=== PATIENT | female | born 1980 | race Caucasian/White ===

== ENCOUNTER 2019-07-20 14:34 | Inpatient (IN) | payer MEDICARE, MEDICAID ==
[~2019-07-20] VITALS: Ht 170.2 cm; Wt 132.1 kg
[2019-07-20 16:13] LABS: HEMATOCRIT 38.9 % (36.0-47.0); HEMOGLOBIN 13.1 g/dl (12.0-15.5); MEAN CORPUSCULAR HEMOGLOBIN 29.5 pg (27.0-33.0); MEAN CORPUSCULAR HGB CONC 33.7 g/dl (32.0-36.5); MEAN CORPUSCULAR VOLUME 87.6 fl (80.0-96.0); PLATELET COUNT, AUTOMATED 418 10^3/uL (150-450); RED BLOOD COUNT 4.44 10^6/uL (4.00-5.40); WHITE BLOOD COUNT 13.1 10^3/uL (4.0-10.0)
[2019-07-20 16:33] LABS: HCG, SERUM QUALITATIVE NEGATIVE (NEGATIVE)
[2019-07-20 16:34] LABS: AMPHETAMINES LEVEL URINE POSITIVE (NEGATIVE); BARBITURATES URINE NEGATIVE (NEGATIVE); BENZODIAZEPINES URINE NEGATIVE (NEGATIVE); CANNABINOIDS URINE NEGATIVE (NEGATIVE); COCAINE METABOLITE URINE NEGATIVE (NEGATIVE); METHADONE URINE POSITIVE (NEGATIVE); OPIATES URINE NEGATIVE (NEGATIVE); PHENCYCLIDINE URINE NEGATIVE (NEGATIVE)
[2019-07-20] MEDS ORDERED: LAMO25TA4 PO (16:44)
[2019-07-20] MEDS ORDERED: LISI10TA15 PO (16:44)
[2019-07-20] MEDS ORDERED: CITA20TA6 PO (16:44)
[2019-07-20] MEDS ORDERED: GABA600T4 PO (16:44)
[2019-07-20] MEDS ORDERED: LAMO100T80 PO (16:44)
[2019-07-20] MEDS ORDERED: LAMO100T3 PO (16:44)
[2019-07-20] MEDS ORDERED: METF500T13 PO ×2 (16:44)
[2019-07-20] MEDS ORDERED: BUPR150T3 PO (16:44)
[2019-07-20] MEDS ORDERED: METH10CO PO (16:44)
[2019-07-20 16:46] LABS: ACETAMINOPHEN LEVEL < 2.0 UG/ML (10.0-30.0); ALBUMIN 3.3 GM/DL (3.2-5.2); ALT/SGPT 77 U/L (12-78); BILIRUBIN,DIRECT 0.1 MG/DL (0.0-0.2); BILIRUBIN,TOTAL 0.2 MG/DL (0.2-1.0); BLOOD UREA NITROGEN 17 MG/DL (7-18); CALCIUM LEVEL 8.3 MG/DL (8.5-10.1); CARBON DIOXIDE LEVEL 26 MEQ/L (21-32); CHLORIDE LEVEL 105 MEQ/L (98-107); CREATININE FOR GFR 0.76 MG/DL (0.55-1.30); ETHYL ALCOHOL (ETHANOL) < 0.003 % (0.000-0.010); GLOMERULAR FILTRATION RATE > 60.0 (>60); GLUCOSE, FASTING 129 MG/DL (70-100); POTASSIUM SERUM 3.6 MEQ/L (3.5-5.1); SALICYLATE LEVEL 2.5 MG/DL (5.0-30.0); SODIUM LEVEL 139 MEQ/L (136-145); TOTAL PROTEIN 7.3 GM/DL (6.4-8.2)
[2019-07-20] MEDS ORDERED: MOM 30ML SUSPENSION UDC PO PRN (20:30)
[2019-07-20] MEDS ORDERED: lamoTRIgine 25 MG TAB PO ONE (20:30)
[2019-07-20] MEDS ORDERED: metFORMIN (GLUCOPHAGE) 1000 MG TABLET PO ONE (20:30)
[2019-07-20] MEDS ORDERED: MAALOX 30 ML SUSP *UDC PO PRN (20:30)
[2019-07-20] MEDS ORDERED: GABAPENTIN 300 MG CAP PO ONE (20:30)
[2019-07-20] MEDS ORDERED: traZODone 50 MG TAB PO PRN (20:30)
[2019-07-20] MEDS: GABAPENTIN 300 MG CAP PO SCH (20:58)
[2019-07-20] MEDS: metFORMIN (GLUCOPHAGE) 500 MG TAB PO SCH (20:58)
[2019-07-20] MEDS: lamoTRIgine 25 MG TAB PO SCH (20:58)
[2019-07-20 22:15] VITALS: BP 132/74
[2019-07-21] MEDS: ACETAMINOPHEN TAB 650MG DOSE (2X325MG) PO PRN ×2 (05:48→18:34)
[2019-07-21 05:53] VITALS: BP 151/84
[2019-07-21] MEDS: NICOTINE 21MG/24HR 1 EA TRANSDERMAL TD SCH (08:31)
[2019-07-21] MEDS: buPROPion **XL** TABLET 150MG (WELLBUTRIN XL) PO SCH (08:34)
[2019-07-21] MEDS: metFORMIN (GLUCOPHAGE) 500 MG TAB PO SCH ×2 (08:34→22:26)
[2019-07-21] MEDS: lamoTRIgine 100MG TAB PO SCH (08:34)
[2019-07-21] MEDS: CitaloPRAM (CeleXA) 20 MG TAB PO SCH (08:34)
[2019-07-21] MEDS: GABAPENTIN 300 MG CAP PO SCH ×3 (08:34→22:27)
[2019-07-21] MEDS: lisinopriL 10 MG TAB PO SCH (08:34)
[2019-07-21] MEDS: hydroCHLOROthiazide 12.5 MG CAPSULE PO SCH (08:34)
[2019-07-21] MEDS: METHADONE 10 MG TAB (S0109) PO SCH (09:17)
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
--- NOTE | 2019-07-21 14:00 | HPEPDOC ---
[facility] Medical History & Physical Date of Admission Jul 21, 2019 Date of Service: Jul 21, 2019 Other Provider PCP - Cheri Edwards History and Physical CHIEF COMPLAINT: Medical H&P for inpatient mental health HISTORY OF PRESENT ILLNESS: 38 yo female admitted to [facility] for suicidal ideation. Patient has no medical complaints at this time. PAST MEDICAL HISTORY: #glucose intolerance #hypertension #peripheral neuropathy #IVDA ALLERGIES: Please see below. REVIEW OF SYSTEMS: Negative HOME MEDICATIONS: Please see below. PHYSICAL EXAMINATION: VITAL SIGNS: See below General: NAD, sitting in chair comfortably HEENT: NC/AT, EOMI Lungs: CTA B/L Heart: +S1S2, RRR Abd: obese, soft, NT, +BS Ext: no edema LABORATORY DATA: See below. MICROBIOLOGY: Please see below. ASSESSMENT: 38 yo female admitted to [facility] for suicidal ideation. #glucose intolerance - carb consistent diet - metformin #HTN - low salt diet - ACEI #neuropathy - continue gabapentin as per home Rx if no CI with psych #nicotine abuse - nicotine replacement therapy in place Vital Signs Vital Signs Date Time Temp Pulse Resp B/P (MAP) Pulse Ox O2 Delivery O2 Flow Rate FiO2 07/21/19 08:34 132/60 07/21/19 07:55 Room Air 07/21/19 05:53 99.5 100 20 07/20/19 22:15 94 Laboratory Data Labs 24H Laboratory Tests 2 07/20/19 15:52: Nucleated Red Blood Cells % (auto) 0.0, Anion Gap 8, Glomerular Filtration Rate > 60.0, Calcium Level 8.3L, Total Bilirubin 0.2, Direct Bilirubin 0.1, Aspartate Amino Transf (AST/SGOT) 87H, Alanine Aminotransferase (ALT/SGPT) 77, Alkaline Phosphatase 149H, Total Protein 7.3, Albumin 3.3, Albumin/Globulin Ratio 0.83L, Thyroid Stimulating Hormone (TSH) 1.020, Human Chorionic Gonadotropin, Qual NEGATIVE, Salicylates Level 2.5L, Urine Opiates Screen NEGATIVE, Urine Methadone Screen POSITIVEH, Acetaminophen Level < 2.0L, Urine Barbiturates Screen NEGATIVE, Urine Phencyclidine Screen NEGATIVE, Urine Amphetamines Screen POSITIVEH, Urine Benzodiazepines Screen NEGATIVE, Urine Cocaine Metabolite Screen NEGATIVE, Urine Cannabinoids Screen NEGATIVE, Ethyl Alcohol Level < 0.003 CBC/BMP Laboratory Tests 07/20/19 15:52 Home Medications Scheduled Bupropion Hcl (Bupropion Xl) 150 Mg Tab.er.24h, 150 MG PO DAILY Citalopram Hydrobromide (Citalopram HBr) 20 Mg Tablet, 20 MG PO DAILY Gabapentin (Gabapentin) 600 Mg Tablet, 600 MG PO TID Lamotrigine (Lamotrigine) 100 Mg Tablet, 100 MG PO QAM Lamotrigine (Lamotrigine) 25 Mg Tablet, 25 MG PO QHS 75MG TOTAL QHS Lamotrigine (Lamotrigine) 100 Mg Tablet, 50 MG PO QHS 75MG TOTAL QHS Lisinopril/Hydrochlorothiazide (Lisinopril-Hctz 10-12.5 mg Tab) 1 Each Tablet, 1 TAB PO DAILY Metformin HCl (Metformin HCl) 500 Mg Tablet, 500 MG PO QAM Metformin HCl (Metformin HCl) 500 Mg Tablet, 1,000 MG PO QHS Methadone HCl (Methadone HCl) 10 Mg/1 Ml Oral.conc, 180 MG PO DAILY Allergies Coded Allergies: ketorolac (Verified Allergy, Severe, throat closesd, 07/20/19) metoclopramide (Verified Allergy, Intermediate, 07/20/19) bacitracin (Verified Allergy, Unknown, 07/20/19) neomycin (Verified Allergy, Unknown, 07/20/19) polymyxin B (Verified Allergy, Unknown, 07/20/19) morphine (Verified Adverse Reaction, Intermediate, hr elevated, 07/20/19) quetiapine (Verified Adverse Reaction, Intermediate, heart races, 07/20/19) A-FIB/CHADSVASC A-FIB History Current/History of A-Fib/PAF?: No RIO AWAN MD Jul 21, 2019 14:00
[2019-07-21 16:00] VITALS: BP 108/65
[2019-07-21] MEDS: lamoTRIgine 25 MG TAB PO SCH (22:26)
[2019-07-22] MEDS: ACETAMINOPHEN TAB 650MG DOSE (2X325MG) PO PRN (04:26)
[2019-07-22 06:15] VITALS: BP 130/81
[2019-07-22] MEDS: buPROPion **XL** TABLET 150MG (WELLBUTRIN XL) PO SCH (08:27)
[2019-07-22] MEDS: lisinopriL 10 MG TAB PO SCH (08:27)
[2019-07-22] MEDS: NICOTINE 21MG/24HR 1 EA TRANSDERMAL TD SCH (08:27)
[2019-07-22] MEDS: metFORMIN (GLUCOPHAGE) 500 MG TAB PO SCH ×2 (08:28→21:09)
[2019-07-22] MEDS: hydroCHLOROthiazide 12.5 MG CAPSULE PO SCH (08:28)
[2019-07-22] MEDS: METHADONE 10 MG TAB (S0109) PO SCH (08:28)
[2019-07-22] MEDS: CitaloPRAM (CeleXA) 20 MG TAB PO SCH (08:30)
[2019-07-22] MEDS: lamoTRIgine 100MG TAB PO SCH (08:30)
[2019-07-22] MEDS: GABAPENTIN 300 MG CAP PO SCH ×3 (08:31→21:10)
--- NOTE | 2019-07-22 08:53 | MHIPNPDOC ---
[facility] Progress Note Progress Note DATE OF SERVICE: 07/22/19 HISTORY: Pt is a 38y/o CF admitted after she was brought in to be parole after seen at [facility] due to having urges to kill her self by using heroin do to multip le psychosocial stressors and loss of her father recently. She is currently in the methadone. VITAL SIGNS: See below. NEW TEST RESULTS: See below. CURRENT MEDICATIONS: See below. MENTAL STATUS EXAMINATION: Patient is a 38 year old female, who is clean and dressed hospital clothing Speech: Is regular rate rhythm, volume. Language skills are good Thought processes including: linear, logical Thought content: depressed, denies SI/HI, positive thoughts about not being brianna Abstract reasoning, and computation: intact. Description of associations: appropriate Description of abnormal or psychotic thoughts: denies Judgment: fair Insight: fair Orientation: x3 Recent and remote memory: intact Attention span and concentration: good Language: appropriate Fund of knowledge: average Mood: "ok" Affect: euthymic, full, anxious DIAGNOSES: Depression Unspecified R/O adjustment d/o depression opiate use d/o in remission ASSESSMENT:Pt seen and states that her mood is "ok". States she's continuing to struggle with why she has been feeling thoughts of not being alive and wants to strength her thoughts in wanting to be alive. Reviewed with her how to use CBT and states she'll use it. States she slept well last night. Feels she is tolerating her medications and they're beneficial. She is attending groups and finding them helpful. She denies SI/HI, hallucinations, delusions. Pt feels safe here. MANAGEMENT PLAN: continue plan. TIME SPENT: 30 minutes. Vital Signs Vital Signs Date Time Temp Pulse Resp B/P (MAP) Pulse Ox O2 Delivery O2 Flow Rate FiO2 07/22/19 06:15 98.6 79 18 130/81 (97) 07/21/19 07:55 Room Air 07/20/19 22:15 94 Current Medications Current Medications Medications (Trade) Dose Ordered Sig/Bernice Route PRN Reason Start Time Stop Time Status Last Admin Dose Admin Acetaminophen (Tylenol Tab) 650 mg Q6HP PRN PO HEADACHE or DISCOMFORT 07/20/19 20:30 07/22/19 04:26 Al Hydrox/Mg Hydrox/Simethicone (Mylanta) 30 ml Q4HP PRN PO HEARTBURN/INDIGESTION 07/20/19 20:30 Bupropion HCl (Wellbutrin Xl) 150 mg DAILY PO 07/21/19 09:00 07/21/19 08:34 Citalopram Hydrobromide (CeleXA) 20 mg DAILY PO 07/21/19 09:00 07/21/19 08:34 Gabapentin (Neurontin) 600 mg TID PO 07/20/19 21:00 07/21/19 22:27 Home Med (Med Rec Complete!) ASDIRECTED XX 07/20/19 16:45 07/20/19 16:47 DC Hydrochlorothiazide (Hydrodiuril) 12.5 mg DAILY PO 07/21/19 09:00 07/21/19 08:34 Lamotrigine (LaMICtal) 75 mg QHS PO 07/20/19 21:00 07/21/19 22:26 Lamotrigine (LaMICtal) 100 mg QAM PO 07/21/19 09:00 07/21/19 08:34 Lisinopril (Prinivil) 10 mg DAILY PO 07/21/19 09:00 07/21/19 08:34 Magnesium Hydroxide (Milk Of Magnesia) 30 ml DAILYPRN PRN PO CONSTIPATION 07/20/19 20:30 Metformin HCl (Glucophage) 500 mg QAM PO 07/21/19 09:00 07/21/19 08:34 Metformin HCl (Glucophage) 1,000 mg QHS PO 07/20/19 21:00 07/21/19 22:26 Methadone HCl (Dolophine) 180 mg DAILY PO 07/21/19 09:00 07/21/19 09:17 Nicotine (Nicoderm Cq 21mg) 1 patch DAILY TD 07/21/19 09:00 07/21/19 08:31 Trazodone HCl (Desyrel) 50 mg QHSP PRN PO INSOMNIA 07/20/19 20:30 07/21/19 22:27 Allergies Coded Allergies: ketorolac (Verified Allergy, Severe, throat closesd, 07/20/19) metoclopramide (Verified Allergy, Intermediate, 07/20/19) bacitracin (Verified Allergy, Unknown, 07/20/19) neomycin (Verified Allergy, Unknown, 07/20/19) polymyxin B (Verified Allergy, Unknown, 07/20/19) morphine (Verified Adverse Reaction, Intermediate, hr elevated, 07/20/19) quetiapine (Verified Adverse Reaction, Intermediate, heart races, 07/20/19) BELA LINDER DO Jul 22, 2019 8:53 am
[2019-07-22 16:00] VITALS: BP 137/74
[2019-07-22] MEDS: lamoTRIgine 25 MG TAB PO SCH (21:09)
[2019-07-23 06:29] VITALS: BP 122/67
[2019-07-23] MEDS: buPROPion **XL** TABLET 150MG (WELLBUTRIN XL) PO SCH (08:52)
[2019-07-23] MEDS: METHADONE 10 MG TAB (S0109) PO SCH (08:52)
[2019-07-23] MEDS: GABAPENTIN 300 MG CAP PO SCH ×3 (08:52→20:35)
[2019-07-23] MEDS: CitaloPRAM (CeleXA) 20 MG TAB PO SCH (08:52)
[2019-07-23] MEDS: metFORMIN (GLUCOPHAGE) 500 MG TAB PO SCH ×2 (08:53→20:36)
[2019-07-23] MEDS: hydroCHLOROthiazide 12.5 MG CAPSULE PO SCH (08:54)
[2019-07-23] MEDS: lamoTRIgine 100MG TAB PO SCH (08:54)
[2019-07-23] MEDS: lisinopriL 10 MG TAB PO SCH (08:54)
[2019-07-23] MEDS: NICOTINE 21MG/24HR 1 EA TRANSDERMAL TD SCH (08:55)
--- NOTE | 2019-07-23 09:42 | MHIPNPDOC ---
[facility] Progress Note Progress Note DATE OF SERVICE: 07/23/19 HISTORY: Per Dr. Eden: "Patient, a 38-year-old woman with an extensive history of drug abuse, presents after reporting that for the last week she has become increasingly depressed, lost interest and had difficulty concentrating. She has a history of significant problems with methamphetamine and is currently at [facility] for methadone. She presented with vague suicidal ideation and was admitted out of an abundance of caution. When the patient was met with, she described that she had symptoms of depression, low mood in the setting of some stressors, stating that she had "been doing too much." Reportedly she had been brought in from probation and parole warning that she had suicidal thoughts." Pt is a 38y/o CF admitted after she was brought in to be parole after seen at [facility] due to having urges to kill her self by using heroin do to multiple psychosocial stressors and loss of her father recently. She is currently in the methadone. VITAL SIGNS: See below. NEW TEST RESULTS: See below. CURRENT MEDICATIONS: See below. MENTAL STATUS EXAMINATION: Patient is a 38 year old female, who is clean and dressed hospital clothing Speech: Is regular rate rhythm, volume. Language skills are good Thought processes including: linear, logical Thought content: depressed, denies SI/HI, improved thoughts about not being alive Abstract reasoning, and computation: intact. Description of associations: appropriate Description of abnormal or psychotic thoughts: denies Judgment: fair Insight: fair Orientation: x3 Recent and remote memory: intact Attention span and concentration: good Language: appropriate Fund of knowledge: average Mood: "off" Affect: euthymic, full, anxious DIAGNOSES: Depression Unspecified R/O adjustment d/o depression opiate use d/o in remission ASSESSMENT:Pt seen and states that her mood is "off" today. As she doesn't want to harm herself anymore but still feels depressed. Advised pt that her medication and treatment appear to be beneficial due to improvement in SI and that over weekend her mood should improve for discharge Friday which she found reassuring. States she slept well last night. Feels she is tolerating her medications and they're beneficial. She is attending groups and finding them helpful. She denies SI/HI, hallucinations, delusions. Pt feels safe here. MANAGEMENT PLAN: continue plan. TIME SPENT: 30 minutes. Vital Signs Vital Signs Date Time Temp Pulse Resp B/P (MAP) Pulse Ox O2 Delivery O2 Flow Rate FiO2 07/23/19 08:54 130/84 07/23/19 06:29 98.6 84 14 07/22/19 08:59 Room Air 07/20/19 22:15 94 Current Medications Current Medications Medications (Trade) Dose Ordered Sig/Bernice Route PRN Reason Start Time Stop Time Status Last Admin Dose Admin Acetaminophen (Tylenol Tab) 650 mg Q6HP PRN PO HEADACHE or DISCOMFORT 07/20/19 20:30 07/22/19 04:26 Al Hydrox/Mg Hydrox/Simethicone (Mylanta) 30 ml Q4HP PRN PO HEARTBURN/INDIGESTION 07/20/19 20:30 Bupropion HCl (Wellbutrin Xl) 150 mg DAILY PO 07/21/19 09:00 07/23/19 08:52 Citalopram Hydrobromide (CeleXA) 20 mg DAILY PO 07/21/19 09:00 07/23/19 08:52 Gabapentin (Neurontin) 600 mg TID PO 07/20/19 21:00 07/23/19 08:52 Home Med (Med Rec Complete!) ASDIRECTED XX 07/20/19 16:45 07/20/19 16:47 DC Hydrochlorothiazide (Hydrodiuril) 12.5 mg DAILY PO 07/21/19 09:00 07/23/19 08:54 Lamotrigine (LaMICtal) 75 mg QHS PO 07/20/19 21:00 07/22/19 21:09 Lamotrigine (LaMICtal) 100 mg QAM PO 07/21/19 09:00 07/23/19 08:54 Lisinopril (Prinivil) 10 mg DAILY PO 07/21/19 09:00 07/23/19 08:54 Magnesium Hydroxide (Milk Of Magnesia) 30 ml DAILYPRN PRN PO CONSTIPATION 07/20/19 20:30 Metformin HCl (Glucophage) 500 mg QAM PO 07/21/19 09:00 07/23/19 08:53 Metformin HCl (Glucophage) 1,000 mg QHS PO 07/20/19 21:00 07/22/19 21:09 Methadone HCl (Dolophine) 180 mg DAILY PO 07/21/19 09:00 07/23/19 08:52 Nicotine (Nicoderm Cq 21mg) 1 patch DAILY TD 07/21/19 09:00 07/23/19 08:55 Trazodone HCl (Desyrel) 50 mg QHSP PRN PO INSOMNIA 07/20/19 20:30 07/21/19 22:27 Allergies Coded Allergies: ketorolac (Verified Allergy, Severe, throat closesd, 07/20/19) metoclopramide (Verified Allergy, Intermediate, 07/20/19) bacitracin (Verified Allergy, Unknown, 07/20/19) neomycin (Verified Allergy, Unknown, 07/20/19) polymyxin B (Verified Allergy, Unknown, 07/20/19) morphine (Verified Adverse Reaction, Intermediate, hr elevated, 07/20/19) quetiapine (Verified Adverse Reaction, Intermediate, heart races, 07/20/19) BELA LINDER DO Jul 23, 2019 9:42 am
[2019-07-23 16:39] VITALS: BP 118/79
[2019-07-23] MEDS: lamoTRIgine 25 MG TAB PO SCH (20:35)
[2019-07-24 06:13] VITALS: BP 123/59
[2019-07-24] MEDS: METHADONE 10 MG TAB (S0109) PO SCH (08:53)
[2019-07-24] MEDS: hydroCHLOROthiazide 12.5 MG CAPSULE PO SCH (08:53)
[2019-07-24] MEDS: GABAPENTIN 300 MG CAP PO SCH ×3 (08:53→20:17)
[2019-07-24] MEDS: CitaloPRAM (CeleXA) 20 MG TAB PO SCH (08:54)
[2019-07-24] MEDS: buPROPion **XL** TABLET 150MG (WELLBUTRIN XL) PO SCH (08:54)
[2019-07-24] MEDS: lamoTRIgine 100MG TAB PO SCH (08:54)
[2019-07-24] MEDS: lisinopriL 10 MG TAB PO SCH (08:54)
[2019-07-24] MEDS: metFORMIN (GLUCOPHAGE) 500 MG TAB PO SCH ×2 (08:54→20:17)
[2019-07-24] MEDS: NICOTINE 21MG/24HR 1 EA TRANSDERMAL TD SCH (08:55)
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
[2019-07-24 16:08] VITALS: BP 130/80
[2019-07-24] MEDS: lamoTRIgine 25 MG TAB PO SCH (20:17)
[2019-07-25 06:28] VITALS: BP 110/55
[2019-07-25] MEDS: GABAPENTIN 300 MG CAP PO SCH ×3 (08:25→20:20)
[2019-07-25] MEDS: lamoTRIgine 100MG TAB PO SCH (08:25)
[2019-07-25] MEDS: lisinopriL 10 MG TAB PO SCH (08:26)
[2019-07-25] MEDS: buPROPion **XL** TABLET 150MG (WELLBUTRIN XL) PO SCH (08:26)
[2019-07-25] MEDS: CitaloPRAM (CeleXA) 20 MG TAB PO SCH (08:26)
[2019-07-25] MEDS: METHADONE 10 MG TAB (S0109) PO SCH (08:27)
[2019-07-25] MEDS: NICOTINE 21MG/24HR 1 EA TRANSDERMAL TD SCH (08:31)
[2019-07-25] MEDS: metFORMIN (GLUCOPHAGE) 500 MG TAB PO SCH ×2 (09:33→20:20)
[2019-07-25] MEDS: hydroCHLOROthiazide 12.5 MG CAPSULE PO SCH (09:33)
[2019-07-25 16:00] VITALS: BP 127/57
--- NOTE | 2019-07-25 17:30 | MHIPNPDOC ---
[facility] Progress Note Progress Note DATE OF SERVICE: 07/25/19 HISTORY: Per Dr. Eden: "Patient, a 38-year-old woman with an extensive history of drug abuse, presents after reporting that for the last week she has become increasingly depressed, lost interest and had difficulty concentrating. She has a history of significant problems with methamphetamine and is currently at [facility] for methadone. She presented with vague suicidal ideation and was admitted out of an abundance of caution. When the patient was met with, she described that she had symptoms of depression, low mood in the setting of some stressors, stating that she had "been doing too much." Reportedly she had been brought in from probation and parole warning that she had suicidal thoughts." Pt is a 38y/o CF admitted after she was brought in to be parole after seen at [facility] due to having urges to kill her self by using heroin do to multiple psychosocial stressors and loss of her father recently. She is currently in the methadone. VITAL SIGNS: See below. NEW TEST RESULTS: See below. CURRENT MEDICATIONS: See below. MENTAL STATUS EXAMINATION: Patient is a 38 year old female, who is clean and dressed hospital clothing, pleasant and cooperative Speech: Is regular rate rhythm, volume. Language skills are good Thought processes including: linear, logical Thought content: depressed, denies SI/HI but she continues to endorse guilty thoughts/feelings Abstract reasoning, and computation: intact. Description of associations: appropriate Description of abnormal or psychotic thoughts: denies Judgment: fair Insight: fair Orientation: x3 Recent and remote memory: intact Attention span and concentration: good Language: appropriate Fund of knowledge: average Mood: "I'm not ready yet" Affect: congruent with mood, sad DIAGNOSES: Depression Unspecified R/O adjustment d/o depression opiate use d/o in remission ASSESSMENT: patient is still depressed although she is not suicidal or homicidal. She thinks she needs to stay longer because she still feels vulnerable to deal with the outside world. She's been pleasant and cooperative MANAGEMENT PLAN: continue with current treatment plan TIME SPENT: 15 minutes. Vital Signs Vital Signs Date Time Temp Pulse Resp B/P (MAP) Pulse Ox O2 Delivery O2 Flow Rate FiO2 07/25/19 08:26 110/55 07/25/19 06:28 97.6 80 16 07/22/19 08:59 Room Air 07/20/19 22:15 94 Laboratory Data 24H Labs Laboratory Tests 2 07/24/19 16:55: Bedside Glucose (Misc Panel) 124H 07/25/19 06:47: Bedside Glucose (Misc Panel) 108H Current Medications Current Medications Medications (Trade) Dose Ordered Sig/Bernice Route PRN Reason Start Time Stop Time Status Last Admin Dose Admin Acetaminophen (Tylenol Tab) 650 mg Q6HP PRN PO HEADACHE or DISCOMFORT 07/20/19 20:30 07/22/19 04:26 Al Hydrox/Mg Hydrox/Simethicone (Mylanta) 30 ml Q4HP PRN PO HEARTBURN/INDIGESTION 07/20/19 20:30 Bupropion HCl (Wellbutrin Xl) 150 mg DAILY PO 07/21/19 09:00 07/25/19 08:26 Citalopram Hydrobromide (CeleXA) 20 mg DAILY PO 07/21/19 09:00 07/25/19 08:26 Gabapentin (Neurontin) 600 mg TID PO 07/20/19 21:00 07/25/19 16:05 Home Med (Med Rec Complete!) ASDIRECTED XX 07/20/19 16:45 07/20/19 16:47 DC Hydrochlorothiazide (Hydrodiuril) 12.5 mg DAILY PO 07/21/19 09:00 07/25/19 09:33 Lamotrigine (LaMICtal) 75 mg QHS PO 07/20/19 21:00 07/24/19 20:17 Lamotrigine (LaMICtal) 100 mg QAM PO 07/21/19 09:00 07/25/19 08:25 Lisinopril (Prinivil) 10 mg DAILY PO 07/21/19 09:00 07/25/19 08:26 Magnesium Hydroxide (Milk Of Magnesia) 30 ml DAILYPRN PRN PO CONSTIPATION 07/20/19 20:30 Metformin HCl (Glucophage) 500 mg QAM PO 07/21/19 09:00 07/25/19 09:33 Metformin HCl (Glucophage) 1,000 mg QHS PO 07/20/19 21:00 07/24/19 20:17 Methadone HCl (Dolophine) 180 mg DAILY PO 07/21/19 09:00 07/25/19 08:27 Nicotine (Nicoderm Cq 21mg) 1 patch DAILY TD 07/21/19 09:00 07/25/19 08:31 Trazodone HCl (Desyrel) 50 mg QHSP PRN PO INSOMNIA 07/20/19 20:30 07/21/19 22:27 Allergies Coded Allergies: ketorolac (Verified Allergy, Severe, throat closesd, 07/20/19) metoclopramide (Verified Allergy, Intermediate, 07/20/19) bacitracin (Verified Allergy, Unknown, 07/20/19) neomycin (Verified Allergy, Unknown, 07/20/19) polymyxin B (Verified Allergy, Unknown, 07/20/19) morphine (Verified Adverse Reaction, Intermediate, hr elevated, 07/20/19) quetiapine (Verified Adverse Reaction, Intermediate, heart races, 07/20/19) BOB GALINDO MD Jul 25, 2019 16:18
[2019-07-25] MEDS: lamoTRIgine 25 MG TAB PO SCH (20:20)
[2019-07-26 06:41] VITALS: BP 122/80
[2019-07-26] MEDS: NICOTINE 21MG/24HR 1 EA TRANSDERMAL TD SCH (08:51)
[2019-07-26 08:55] VITALS: BP 123/70
[2019-07-26] MEDS: CitaloPRAM (CeleXA) 20 MG TAB PO SCH (08:55)
[2019-07-26] MEDS: metFORMIN (GLUCOPHAGE) 500 MG TAB PO SCH (08:55)
[2019-07-26] MEDS: hydroCHLOROthiazide 12.5 MG CAPSULE PO SCH (08:55)
[2019-07-26] MEDS: lamoTRIgine 100MG TAB PO SCH (08:55)
[2019-07-26] MEDS: lisinopriL 10 MG TAB PO SCH (08:55)
[2019-07-26] MEDS: GABAPENTIN 300 MG CAP PO SCH (08:55)
[2019-07-26] MEDS: buPROPion **XL** TABLET 150MG (WELLBUTRIN XL) PO SCH (08:55)
[2019-07-26] MEDS: METHADONE 10 MG TAB (S0109) PO SCH (08:56)
--- NOTE | 2019-07-26 09:58 | MHDSPDOC ---
[facility] Discharge Summary Discharge Summary DATE OF ADMISSION: Jul 20, 2019 at 20:26 DATE OF DISCHARGE: 07/26/19 Amy Downs Discharge Amy Downs Select Gender MRN: N/A Date of : MM/DD/YYYY Date of Service: 07/26/2019 Diagnoses Unspecified depressive disorder. Concern for fabrication versus substance. Methamphetamine use disorder, [id number]. Opioid use disorder, severe. Reported history of abuse. Concern for malingering. History of Present Illness Patient, a 38-year-old woman with an extensive history of drug abuse, presents after reporting that for the last week she has become increasingly depressed, lost interest and had difficulty concentrating. She has a history of significant problems with methamphetamine and is currently at [facility] for methadone. She presented with vague suicidal ideation and was admitted out of an abundance of caution. When the patient was met with, she described that she had symptoms of depression, low mood in the setting of some stressors, stating that she had "been doing too much." Reportedly she had been brought in from probation and parole warning that she had suicidal thoughts. Consultants Involved Hospitalist/PCP screening Treatment and Progress On The Unit The patient was admitted to the inpatient mental health unit. She initially appeared to have presented secondary to methamphetamine use. Patient had some depression that initially definitely seems to be related to substance withdrawal. The patient wished to stay and was retained. Her medications at home were restarted with no modifications and she was primarily treated with psychotherapy. She attended groups frequently, had no behavioral concerns and generally did well on our unit. There was some concern among the treatment team that the patient was attempting to remain here in order to not test positive for methamphetamine when she returns to her methadone program as that would violate a contract that she had had. However, the patient appeared to get much out of her stay with little involvement further suggesting either fabrication or a mild adjustment or entirely sepsis related all of which would resolve without much more than supportive treatment on our unit. Discharge Assessment 38-year-old woman with a history of significant drug use presents depressed after relapsing on methamphetamine, she appears to have a history of using methamphetamine infrequently, but it appears it made her adjustment to multiple stressors worse. She does well with just simple supportive treatment and psychotherapy while on our unit. The patient at the time of discharge did not meet criteria for involuntary admission/extension due to having a normal mental status exam, fair insight into the situation, They are engaged in the discharge process, as well as being friendly and amenable in behavioral control and havent been engaging in any observed concerning behavior or ideation recently. They decline voluntary extension/admission at this time and must be discharged in good alvin, as Im unable to make a case for holding the patient against their will. They may have historical risk factors of admissions and other interactions with psychiatry however, those are not modifiable from a clinical perspective. The patient will need to be discharged in good alvin. Mental Status Examination General: Well dressed with good hygiene Speech: Spontaneous and fluid Thought processes: Linear and logical MSK: Smooth and coordinated gait, no signs of tremors or involuntary orofacial movements Thought content: Future orientated Abstract reasoning, and computation: Intact Description of associations: Intact Description of abnormal or psychotic thoughts: Denies any suicidal or homicidal ideation. Denies any auditory or visual hallucinations. Does not appear to be responding to internal stimuli. Does not appear to be endorsing any bizarre or paranoid ideation. Judgment: fair Insight: fair Orientation: Alert and orientated 3 Cognition: Grossly normal Recent and remote memory: Intact Attention span and concentration: Intact Fund of knowledge: Adequate Mood: "okay" Affect: Euthymic with a full range Follow Up The social work team worked during the predischarge meeting in order to evaluate for further issues of lethality address them fully before discharge. They worked on safety planning with the patient's family members in order to ensure that the patient will have a safe and effective discharge. Time Spent The amount of time spent in the coordination of care for this patient was approximately 60 minutes. Vital Signs/I&Os Vital Signs Date Time Temp Pulse Resp B/P (MAP) Pulse Ox O2 Delivery O2 Flow Rate FiO2 07/26/19 08:55 123/70 07/26/19 06:41 98.0 61 18 Room Air 07/20/19 22:15 94 Laboratory Data Labs 24H Laboratory Tests 2 07/25/19 20:18: Bedside Glucose (Misc Panel) 155H 07/26/19 06:34: Bedside Glucose (Misc Panel) 121H Medications Scheduled Bupropion Hcl (Bupropion Xl) 150 Mg Tab.er.24h, 150 MG PO DAILY, (Reported) Citalopram Hydrobromide (Citalopram HBr) 20 Mg Tablet, 20 MG PO DAILY, (Reported) Gabapentin (Gabapentin) 600 Mg Tablet, 600 MG PO TID, (Reported) Lamotrigine (Lamotrigine) 100 Mg Tablet, 100 MG PO QAM, (Reported) Lamotrigine (Lamotrigine) 25 Mg Tablet, 25 MG PO QHS, (Reported) 75MG TOTAL QHS Lamotrigine (Lamotrigine) 100 Mg Tablet, 50 MG PO QHS, (Reported) 75MG TOTAL QHS Lisinopril/Hydrochlorothiazide (Lisinopril-Hctz 10-12.5 mg Tab) 1 Each Tablet, 1 TAB PO DAILY, (Reported) Metformin HCl (Metformin HCl) 500 Mg Tablet, 500 MG PO QAM, (Reported) Metformin HCl (Metformin HCl) 500 Mg Tablet, 1,000 MG PO QHS, (Reported) Methadone HCl (Methadone HCl) 10 Mg/1 Ml Oral.conc, 180 MG PO DAILY, (Reported) Nicotine (Nicotine Patch) 21 Mg Patch.td24, 1 PATCH TD DAILY for tobacco for 30 Days, #30 Allergies Coded Allergies: ketorolac (Verified Allergy, Severe, throat closesd, 07/20/19) metoclopramide (Verified Allergy, Intermediate, 07/20/19) bacitracin (Verified Allergy, Unknown, 07/20/19) neomycin (Verified Allergy, Unknown, 07/20/19) polymyxin B (Verified Allergy, Unknown, 07/20/19) morphine (Verified Adverse Reaction, Intermediate, hr elevated, 07/20/19) quetiapine (Verified Adverse Reaction, Intermediate, heart races, 07/20/19) CORNELL MORTENSEN DO Jul 26, 2019 09:58
[2019-07-26] MEDS ORDERED: NICO21PAT TD (11:37)
== END 2019-07-26 12:32 | disposition home or self-care (01) | DRG 881 ==
LOC: M ED 14:34 → M ED INP 20:26 → M PSY 21:49
PROVIDERS: ADMIT Psychiatry & Neurology Psychiatry; ATTEND Psychiatry & Neurology Addiction Medicine
DX: F32.9 Major depressive disorder, single episode, unspecified (principal); F15.20 Other stimulant dependence, uncomplicated; F11.21 Opioid dependence, in remission; E74.39 Other disorders of intestinal carbohydrate absorption; F43.21 Adjustment disorder with depressed mood; I10 Essential (primary) hypertension; G62.9 Polyneuropathy, unspecified; Z79.84 Long term (current) use of oral hypoglycemic drugs; Z79.899 Other long term (current) drug therapy; Z88.1 Allergy status to other antibiotic agents; Z88.5 Allergy status to narcotic agent; Z88.8 Allergy status to other drugs, medicaments and biological substances; Z76.5 Malingerer [conscious simulation]

== ENCOUNTER 2019-12-21 10:29 | Inpatient (IN) | payer MEDICARE, MEDICAID ==
[~2019-12-21] VITALS: Ht 172.7 cm; Wt 126.9 kg
[~2019-12-21 10:29] MED LIST: BUPR150T3 PO; CITA20TA6 PO; GABA600T4 PO; LAMO100T3 PO; LAMO100T80 PO; LAMO25TA4 PO; LISI10TA15 PO; METF500T13 PO; METH10CO PO; NICO21PAT TD
[2019-12-21] MEDS ORDERED: LORazepam 2 MG/ML VIAL As Ordered ONE (11:52)
[2019-12-21 12:31] LABS: VENOUS BASE EXCESS -5.8 (-2.0-2.0); VENOUS O2 SATURATION 87.6 % (60.0-80.0); VENOUS PARTIAL PRESSURE CO2 68.2 mmHg (38.0-50.0); VENOUS PARTIAL PRESSURE O2 61.4 mmHg (30.0-50.0); VENOUS PH 7.164 UNITS (7.330-7.430); VENOUS STANDARD HCO3 19.5 MEQ/L; VENOUS TOTAL CO2 26.1 MEQ/L (24.0-28.0)
[2019-12-21 12:32] LABS: ALBUMIN 3.1 GM/DL (3.2-5.2); ALT/SGPT 51 U/L (12-78); BASO % 0.2 % (0.0-1.0); BILIRUBIN,DIRECT 0.1 MG/DL (0.0-0.2); BILIRUBIN,TOTAL 0.3 MG/DL (0.2-1.0); EOS # 0.5 10^3/uL (0.0-0.5); EOS % 2.5 % (0.0-3.0); HEMATOCRIT 38.1 % (36.0-47.0); HEMOGLOBIN 12.5 g/dl (12.0-15.5); LYMPH # 1.5 10^3/uL (1.5-5.0); LYMPH % 8.2 % (24.0-44.0); MEAN CORPUSCULAR HEMOGLOBIN 29.3 pg (27.0-33.0); MEAN CORPUSCULAR HGB CONC 32.8 g/dl (32.0-36.5); MEAN CORPUSCULAR VOLUME 89.4 fl (80.0-96.0); MONO # 0.9 10^3/uL (0.0-0.8); MONO % 4.9 % (0.0-5.0); NEUTROPHILS % 83.6 % (36.0-66.0); PLATELET COUNT, AUTOMATED 426 10^3/uL (150-450); RED BLOOD COUNT 4.26 10^6/uL (4.00-5.40); THYROID STIMULATING HORMONE 0.181 uIU/ML (0.358-3.740); TOTAL PROTEIN 7.1 GM/DL (6.4-8.2); WHITE BLOOD COUNT 17.9 10^3/uL (4.0-10.0)
--- NOTE | 2019-12-21 12:56 | REP ---
Clinical: Right shoulder pain. Technique: Three views of the right shoulder. Findings: Examination is limited by positioning. Mild arthritic changes at the acromioclavicular joint with subtle cortical irregularity. Decrease subacromial space cannot be excluded. No obvious acute fracture or dislocation identified. Impression: Mild arthritic changes at the acromioclavicular joint. No obvious acute fracture or dislocation. Electronically Signed by Vinnie Case MD 12/21/2019 12:48 P
--- NOTE | 2019-12-21 12:57 | REP ---
Portable chest x-ray: Single view. History: Altered mental status. No comparison study. Findings: Exam quality is substantially inhibited by relatively low level of inspiration and patient body habitus. Patient is rotated somewhat to the left. Monitoring electrodes are seen. No focal infiltrate is appreciated. The pleural angles are sharp. The heart does not appear to be enlarged. Impression: No acute disease seen. Image quality inhibited. Electronically Signed by Hari Palmer MD 12/21/2019 12:49 P
[2019-12-21 13:29] LABS: HCG, SERUM QUALITATIVE NEGATIVE (NEGATIVE)
[2019-12-21 13:38] LABS: ACETAMINOPHEN LEVEL < 2.0 UG/ML (10.0-30.0); CK-MB VALUE MASS 98.8 NG/ML (<3.6); CPK CREATINE PHOSPHOKINASE 3909 U/L (26-192); ETHYL ALCOHOL (ETHANOL) < 0.003 % (0.000-0.010); MB/CK RELATIVE INDEX 2.53 (< OR =4); SALICYLATE LEVEL 2.8 MG/DL (5.0-30.0); TROPONIN I < 0.02 NG/ML (< 0.10)
[2019-12-21] MEDS ORDERED: NALOXONE INJ 0.4MG/1ML VIAL (J2310 PER 1MG) IV STA ×2 (14:00→16:21)
[2019-12-21] MEDS ORDERED: NS 1,000 ML IV ONE (14:00)
--- NOTE | 2019-12-21 14:09 | REP ---
Clinical: Altered mental status . Comparison: None . Findings: The ventricles, sulci, and cisterns are normal in position and appearance. Ace-white differentiation is maintained. No acute intracranial hemorrhage, mass/mass effect, pathology or trauma/injury. No evidence for acute infarction. No extra-axial fluid collection. Calvarium is intact. Paranasal sinuses and mastoid air cells are clear. Impression: Normal noncontrast head CT. No evidence for acute intracranial pathology or trauma/injury. Electronically Signed by Vinnie Case MD 12/21/2019 02:01 P
[2019-12-21 14:28] LABS: AMPHETAMINES LEVEL URINE POSITIVE (NEGATIVE); BARBITURATES URINE NEGATIVE (NEGATIVE); BENZODIAZEPINES URINE NEGATIVE (NEGATIVE); CANNABINOIDS URINE NEGATIVE (NEGATIVE); COCAINE METABOLITE URINE NEGATIVE (NEGATIVE); METHADONE URINE POSITIVE (NEGATIVE); OPIATES URINE NEGATIVE (NEGATIVE); PHENCYCLIDINE URINE NEGATIVE (NEGATIVE)
[2019-12-21 14:32] LABS: BLOOD UREA NITROGEN 69 MG/DL (7-18); CARBON DIOXIDE LEVEL 27 mmol/L (20-29); CHLORIDE LEVEL 97 MEQ/L (98-107); CREATININE FOR GFR 6.91 MG/DL (0.55-1.30); GLUCOSE, FASTING 121 MG/DL (70-100); SODIUM LEVEL 135 MEQ/L (136-145)
[2019-12-21 14:33] LABS: CALCIUM LEVEL 7.5 MG/DL (8.5-10.1)
[2019-12-21] MEDS ORDERED: COMMENTS (17:14)
[2019-12-21] MEDS: NS 1,000 ML IV SCH ×2 (17:37→21:00)
--- NOTE | 2019-12-21 17:53 | ECGEPIP ---
[facility] - ED Test Date: 2019-12-21 Pat Name: CHEYENNE NINO Department: Room: - Gender: Female Electrical Installation Supervisor: JESSICA : [id number] Requested By: Brian Garcia Order Number: [id number] Reading MD: Jennifer Cifuentes Measurements Intervals [place] Rate: 89 P: 57 [place]: 160 QRS: 31 QRSD: 100 T: 26 QT: 388 QTc: 475 Interpretive Statements SINUS RHYTHM Prolonged QT interval NO PRIOR Electronically Signed on 12-21-2019 17:52:52 EDT by Jennifer Cifuentes
[2019-12-21] MEDS: HEPARIN SOD (PORCINE) 5000UNITS/ML 1ML VIAL/SYRINGE SC SCH (22:07)
[2019-12-22] VITALS (14 sets, daily range): BP systolic 93–155; BP diastolic 54–85
--- NOTE | 2019-12-22 00:07 | HPEPDOC ---
[facility] Medical History & Physical Date of Admission Dec 21, 2019 Date of Service: Dec 21, 2019 History and Physical CHIEF COMPLAINT: Arm pain HISTORY OF PRESENT ILLNESS: Patient is a 39-year-old female with history of prediabetes, hypertension, neuropathy, tobacco abuse and morbid obesity presents for arm pain. Patient is unable to give history due to mental status (somnolence). History taken from report and notes. Per report, patient was in line to get her methadone today and found to have involuntary twitching and right arm pain. Patient sent to the ER. Patient initially anxious on arrival in the ER, but then became somnolent requiring Narcan 2 with good response. While in the ED patient also required BiPAP and Ventimask. Hospitalist service consulted for admission. Patient denies pain but unable to obtain full ROS due to patient's mental status (somnolence). PAST MEDICAL HISTORY: 1. Prediabetes. 2. Hypertension. 3. Neuropathy. 4. Tobacco abuse. 5. Morbid obesity PAST SURGICAL HISTORY: Unable to obtain due to patient's mental status (somnolence) SOCIAL HISTORY: Tobacco use: Current every day smoker ETOH: Unknown Illicit drug use: Meth FAMILY HISTORY: Unable to obtain due to patient. Mental status (somnolence) ALLERGIES: Please see below. REVIEW OF SYSTEMS: Unable to obtain due to patient's mental status (somnolence) HOME MEDICATIONS: Please see below. PHYSICAL EXAMINATION: VITAL SIGNS: See below GENERAL APPEARANCE: Morbidly obese woman laying in stretcher, Ventimask in place, opens eyes to loud voice, somnolent, answering some questions appropriately HEENT: Dilated pupils, EOMI, dry MM, fissured tongue CARDIOVASCULAR:. RRR, normal S1/2, + murmur, no RG. LUNGS: CTA B/L, W/R/R. ABDOMEN: Soft, mild TTP, nondistended. EXTREMITIES: No edema, intact distal pulses. NEUROLOGICAL: Myoclonic movements, responds to pain, answer some questions appropriately, moving all extremities PSYCHIATRIC: Somnolent, AAO 2. LABORATORY DATA: See below. IMAGING: Head CT: Impression: Normal noncontrast head CT. No evidence for acute intracranial pathology or trauma/injury. CXR(my read): Sharp CP angles, no acute cardiopulmonary disease identified MICROBIOLOGY: Please see below. ASSESSMENT: Patient is a 39-year-old female with history of prediabetes, hypertension, neuropathy, tobacco abuse and morbid obesity presents for arm pain , found to be somnolent in emergency room requiring BiPAP and Narcan 2. Patient responded to Narcan. Therefore, suspect overdose of methadone +/- additional opiates. Patient also with recent meth use of unclear chronicity. Patient also found to have rhabdo with CK 3,909 and creatinine 6.9. It is currently unclear if patient's ingestion was a suicide attempt or not. Plan: #AMS likely Toxic encephalopathy in the setting of methadone OD with somnolence Admit to ICU for close monitoring -s/p bipap Narcan as needed. Supplemental O2 as needed to maintain oxygen saturation greater than 92% Poison control already contacted #Rhabdo Aggressive fluid hydration Trend CPK Avoid nephrotoxic medications #?Suicide attempt 1:1 (sitter) Psych consult Suicide precautions #Prediabetes. Fingerstick glucose Insulin sliding scale. ADA/cardiac diet when able #Tobacco abuse Smoking cessation counseling when patient more awake. Nicotine Patch will be offered. #Hypertension Trend BP Continue home meds when able. DVT PPX: Heparin Disposition: Pending clinical improvement and psych consult Vital Signs Vital Signs Date Time Temp Pulse Resp B/P (MAP) Pulse Ox O2 Delivery O2 Flow Rate FiO2 12/21/19 19:45 98.2 90 18 116/53 (74) 98 12/21/19 16:30 Venturi Mask 15.0 50 Laboratory Data Labs 24H Laboratory Tests 2 12/21/19 11:10: POC Glucose (Misc Panel) 130H, POC Sodium (Misc Panel) 135L, POC Potassium (Misc Panel) 3.8, POC Chloride (Misc Panel) 97L, POC Total CO2 (Misc Panel) 25.0, POC Blood Urea Nitrogen (Misc Panel 79H, POC Ionized Calcium (Misc Panel) 3.9L, POC Creatinine (Misc Panel) 6.9H, POC Hematocrit (Misc Panel) 40.0 12/21/19 11:17: Immature Granulocyte % (Auto) 0.6, Neutrophils (%) (Auto) 83.6H, Lymphocytes (%) (Auto) 8.2L, Monocytes (%) (Auto) 4.9, Eosinophils (%) (Auto) 2.5, Basophils (%) (Auto) 0.2, Neutrophils # (Auto) 15.0H, Lymphocytes # (Auto) 1.5, Monocytes # (Auto) 0.9H, Eosinophils # (Auto) 0.5, Basophils # (Auto) 0.0, Nucleated Red Blood Cells % (auto) 0.0, POC Lactate (Misc Panel) 1.27, Anion Gap , Glomerular Filtration Rate 7.0L, Calcium Level 7.5L, Total Bilirubin 0.3, Direct Bilirubin 0.1, Aspartate Amino Transf (AST/SGOT) 119H, Alanine Aminotransferase (ALT/SGPT) 51, Alkaline Phosphatase 122H, Total Creatine Kinase 3909H, Creatine Kinase MB 98.8H, Creatine Kinase MB Relative Index 2.53, Troponin I < 0.02, Total Protein 7.1, Albumin 3.1L, Albumin/Globulin Ratio 0.8L, Thyroid Stimulating Hormone (TSH) 0.181L, Human Chorionic Gonadotropin, Qual NEGATIVE, Salicylates Level 2.8L, Acetaminophen Level < 2.0L, Ethyl Alcohol Level < 0.003 12/21/19 11:18: Blood Gas Bicarbonate Standard 19.5, Venous Blood pH 7.164L, Venous Blood Partial Pressure CO2 68.2H, Venous Blood Partial Pressure O2 61.4H, Venous Blood Total Carbon Dioxide 26.1, Venous Blood HCO3 24.0, Venous Blood Oxygen Saturation 87.6H, Venous Blood Base Excess -5.8L 12/21/19 11:19: POC Troponin I (Misc) 0.00 12/21/19 11:25: Urine Color YELLOW, Urine Appearance CLOUDYH, Urine pH 5.0, Urine Specific [place] 1.016, Urine Protein 1+H, Urine Glucose (UA) NEGATIVE, Urine Ketones NEGATIVE, Urine Blood 2+H, Urine Nitrite NEGATIVE, Urine Bilirubin NEGATIVE, Urine Urobilinogen 2.0H, Urine Leukocyte Esterase 2+H, Urine WBC (Auto) 17H, Urine RBC (Auto) 5H, Urine Hyaline Casts (Auto) 0, Urine Bacteria (Auto) 1+H, Urine Squamous Epithelial Cells 1, Urine Mucus (Auto) SMALL, Urine Sperm (Auto) , Urine Opiates Screen NEGATIVE, Urine Methadone Screen POSITIVEH, Urine Barbiturates Screen NEGATIVE, Urine Phencyclidine Screen NEGATIVE, Urine Amphetamines Screen POSITIVEH, Urine Benzodiazepines Screen NEGATIVE, Urine C ocaine Metabolite Screen NEGATIVE, Urine Cannabinoids Screen NEGATIVE 12/21/19 11:27: Lactic Acid Level 1.3 12/21/19 13:42: POC pH (Misc Panel) 7.202*L, POC Base Excess (Misc Panel) -4.0L, POC Saturated Percent O2 (Misc) 85L, POC pO2 (Misc Panel) 61.0L, POC pCO2 (Misc Panel) 60.1*H, POC HCO3 (Misc Panel) 23.6, POC Total CO2 (Misc Panel) 25.0 12/21/19 14:00: POC Total CO2 (Misc Panel) 24.0, POC Glucose (Misc Panel) 99, POC Sodium (Misc Panel) 137, POC Potassium (Misc Panel) 4.0, POC Chloride (Misc Panel) 102, POC Blood Urea Nitrogen (Misc Panel 72H, POC Ionized Calcium (Misc Panel) 3.9L, POC Creatinine (Misc Panel) 5.7H, POC Hematocrit (Misc Panel) 37.0L 12/21/19 14:04: POC Lactate (Misc Panel) 0.56 12/21/19 14:47: POC pH (Misc Panel) 7.354, POC Base Excess (Misc Panel) -3.0L, POC Saturated Percent O2 (Misc) 92L, POC pO2 (Misc Panel) 65.0L, POC pCO2 (Misc Panel) 40.8, POC HCO3 (Misc Panel) 22.7, POC Total CO2 (Misc Panel) 24.0 CBC/BMP Laboratory Tests 12/21/19 11:17 Microbiology Microbiology 12/21/19 Respiratory Virus Panel (PCR) ([facility]) - Final, Complete 12/21/19 Blood Culture, Received Pending 12/21/19 Blood Culture, Received Pending 12/21/19 Urine Culture, Received Pending Home Medications Scheduled Bupropion Hcl (Bupropion Xl) 150 Mg Tab.er.24h, 150 MG PO DAILY Citalopram Hydrobromide (Citalopram HBr) 20 Mg Tablet, 20 MG PO DAILY Gabapentin (Gabapentin) 600 Mg Tablet, 600 MG PO TID Lamotrigine (Lamotrigine) 100 Mg Tablet, 100 MG PO BID Lisinopril/Hydrochlorothiazide (Lisinopril-Hctz 10-12.5 mg Tab) 1 Each Tablet, 1 TAB PO DAILY Metformin HCl (Metformin HCl) 500 Mg Tablet, 500 MG PO QAM Metformin HCl (Metformin HCl) 500 Mg Tablet, 1,000 MG PO QHS Methadone HCl (Methadone HCl) 10 Mg/1 Ml Oral.conc, 190 MG PO DAILY Miscellaneous Medications [Comments] MED REC MADE WITH EXTERNAL MED HISTORY Allergies Coded Allergies: ketorolac (Verified Allergy, Severe, throat closesd, 07/20/19) metoclopramide (Verified Allergy, Intermediate, 07/20/19) bacitracin (Verified Allergy, Unknown, 07/20/19) neomycin (Verified Allergy, Unknown, 07/20/19) polymyxin B (Verified Allergy, Unknown, 07/20/19) morphine (Verified Adverse Reaction, Intermediate, hr elevated, 07/20/19) quetiapine (Verified Adverse Reaction, Intermediate, heart races, 07/20/19) A-FIB/CHADSVASC A-FIB History Current/History of A-Fib/PAF?: No ANNETTE MONTEMAYOR MD Dec 22, 2019 00:07
[2019-12-22] MEDS: NS 1,000 ML IV SCH ×6 (04:12→21:08)
[2019-12-22 04:54] LABS: HEMOGLOBIN 12.1 g/dl (12.0-15.5); MEAN CORPUSCULAR HEMOGLOBIN 29.1 pg (27.0-33.0); MEAN CORPUSCULAR HGB CONC 31.8 g/dl (32.0-36.5); MEAN CORPUSCULAR VOLUME 91.3 fl (80.0-96.0); PLATELET COUNT, AUTOMATED 444 10^3/uL (150-450); RED BLOOD COUNT 4.16 10^6/uL (4.00-5.40); WHITE BLOOD COUNT 13.4 10^3/uL (4.0-10.0)
[2019-12-22 05:38] LABS: ALBUMIN 2.8 GM/DL (3.2-5.2); BILIRUBIN,TOTAL 0.2 MG/DL (0.2-1.0); CALCIUM LEVEL 7.6 MG/DL (8.5-10.1); CREATININE FOR GFR 2.22 MG/DL (0.55-1.30); MAGNESIUM LEVEL 2.4 MG/DL (1.8-2.4); PHOSPHORUS LEVEL 4.1 MG/DL (2.5-4.9); POTASSIUM SERUM 4.3 MEQ/L (3.5-5.1); TOTAL PROTEIN 7.3 GM/DL (6.4-8.2)
[2019-12-22] MEDS: HEPARIN SOD (PORCINE) 5000UNITS/ML 1ML VIAL/SYRINGE SC SCH ×3 (06:01→21:08)
[2019-12-22 10:15] LABS: ABG BASE EXCESS -3.4 (-2.0-2.0); ABG HCO3 25.4 MEQ/L (22.0-26.0); ABG O2 SATURATION 93.4 % (95.0-99.0); ABG PARTIAL PRESSURE O2 70.9 mmHg (75.0-100.0); ABG STANDARD HCO3 21.6 MEQ/L (22.0-26.0); ABG TOTAL CO2 27.3 MEQ/L (22.0-29.0)
[2019-12-22 10:46] LABS: ABG pH (ARTERIAL) 7.216 UNITS (7.350-7.450)
[2019-12-22] MEDS ORDERED: NALOXONE INJ 0.4MG/1ML VIAL (J2310 PER 1MG) IV STA (10:57)
--- NOTE | 2019-12-22 12:27 | IPNPDOC ---
Date Seen The patient was seen on 12/22/19. Progress Note SUBJECTIVE: Patient is a 39-year-old female with history of prediabetes, hypertension, neuropathy, tobacco abuse and morbid obesity presents for arm pain , found to be somnolent due to likely methadone overdose in the setting of rhabdo. Pt seen and examined at bedside today and pt still somnolent but arousable. Pt given 0.4mg of narcan with good but transient response therefore will start narcan drip as pt's ABG showing acidosis in the setting of hypercapnia. Pt denies any complaints currently. OBJECTIVE PHYSICAL EXAMINATION: VITAL SIGNS: Please see below. GENERAL APPEARANCE: Morbidly obese woman laying in bed, NC in place, sternal rub, somnolent, answering questions appropriately after narcan CARDIOVASCULAR:. RRR, normal S1/2, + murmur, no RG. LUNGS: CTA B/L, W/R/R. ABDOMEN: Soft, mild TTP, nondistended. EXTREMITIES: No edema, intact distal pulses. NEUROLOGICAL: responds to pain, answer questions appropriately, moving all extremities PSYCHIATRIC: Somnolent, AAO 3 after narcan. LABORATORY DATA, IMAGING STUDIES, MICROBIOLOGY: Please see below. DVT prophylaxis ordered?: heparin ASSESSMENT AND PLAN: Patient is a 39-year-old female with history of prediabetes, hypertension, neuropathy, tobacco abuse and morbid obesity presents for arm pain , found to be somnolent in emergency room requiring BiPAP and Narcan 2. Patient responded to Narcan. Therefore, suspect overdose of methadone +/- additional opiates. Patient also with recent meth use of unclear chronicity. Patient also found to have rhabdo with CK 3,909 and creatinine 6.9. It is currently unclear if patient's ingestion was a suicide attempt or not. Pt still somnolent but arousable. Will place on narcan drip given methadone's long acting nature. Plan: #Somnolence/altered mental status Admit to ICU for close monitoring start low dose narcan drip Supplemental O2 as needed to maintain oxygen saturation greater than 92% Poison control already contacted #Rhabdo cont. Aggressive fluid hydration Trend CPK, currently downtrending Avoid nephrotoxic medications #?Suicide attempt 1:1 (sitter) Psych consult Suicide precautions #Prediabetes. Fingerstick glucose Insulin sliding scale. ADA/cardiac diet when able #Tobacco abuse Smoking cessation counseling when patient more awake. Nicotine Patch will be offered. #Hypertension Trend BP Continue home meds when able. DVT PPX: Heparin Disposition: Pending clinical improvement and psych consult VS, I&O, 24H, Fishbone Vital Signs/I&O Vital Signs Date Time Temp Pulse Resp B/P (MAP) Pulse Ox O2 Delivery O2 Flow Rate FiO2 12/22/19 08:00 1.0 12/22/19 08:00 99.0 98 14 105/63 (77) 93 Nasal Cannula 12/21/19 16:30 50 I&O- Last 24 Hours up to 6 AM 12/22/19 05:59 Intake Total 2030 ml Output Total 1100 ml Balance 930 ml Laboratory Data 24H LABS Laboratory Tests 2 12/21/19 13:42: POC pH (Misc Panel) 7.202*L, POC Base Excess (Misc Panel) -4.0L, POC Saturated Percent O2 (Misc) 85L, POC pO2 (Misc Panel) 61.0L, POC pCO2 (Misc Panel) 60.1*H, POC HCO3 (Misc Panel) 23.6, POC Total CO2 (Misc Panel) 25.0 12/21/19 14:00: POC Total CO2 (Misc Panel) 24.0, POC Glucose (Misc Panel) 99, POC Sodium (Misc Panel) 137, POC Potassium (Misc Panel) 4.0, POC Chloride (Misc Panel) 102, POC Blood Urea Nitrogen (Misc Panel 72H, POC Ionized Calcium (Misc Panel) 3.9L, POC Creatinine (Misc Panel) 5.7H, POC Hematocrit (Misc Panel) 37.0L 12/21/19 14:04: POC Lactate (Misc Panel) 0.56 12/21/19 14:47: POC pH (Misc Panel) 7.354, POC Base Excess (Misc Panel) -3.0L, POC Saturated Percent O2 (Misc) 92L, POC pO2 (Misc Panel) 65.0L, POC pCO2 (Misc Panel) 40.8, POC HCO3 (Misc Panel) 22.7, POC Total CO2 (Misc Panel) 24.0 12/22/19 04:45: Nucleated Red Blood Cells % (auto) 0.0, Anion Gap 3L, Glomerular Filtration Rate 26.0L, Calcium Level 7.6L, Phosphorus Level 4.1, Magnesium Level 2.4, Total Bilirubin 0.2, Aspartate Amino Transf (AST/SGOT) 120H, Alanine Aminotransferase (ALT/SGPT) 50, Alkaline Phosphatase 109, Total Creatine Kinase 3568H, Total Protein 7.3, Albumin 2.8L, Albumin/Globulin Ratio 0.6L 12/22/19 10:02: Blood Gas Bicarbonate Standard 21.6L, Arterial Blood pH 7.216*L, Arterial Blood Partial Pressure CO2 64.0*H, Arterial Blood Partial Pressure O2 70.9L, Arterial Blood Total CO2 27.3, Arterial Blood HCO3 25.4, Arterial Blood Base Excess - 3.4L, Arterial Blood Oxygen Saturation 93.4L CBC/BMP Laboratory Tests 12/22/19 04:45 Microbiology Microbiology 12/21/19 Respiratory Virus Panel (PCR) ([facility]) - Final, Complete 12/21/19 Blood Culture, Received Pending 12/21/19 Blood Culture, Received Pending 12/21/19 Urine Culture, Received Pending ANNETTE MONTEMAYOR MD Dec 22, 2019 12:27
[2019-12-22] MEDS ORDERED: NALOXONE HCL INJ 4 MG in D5W 496 ML IV SCH (13:00)
[2019-12-22 15:48] LABS: ABG BASE EXCESS 0.6 (-2.0-2.0); ABG HCO3 23.6 MEQ/L (22.0-26.0); ABG O2 SATURATION 94.8 % (95.0-99.0); ABG PARTIAL PRESSURE CO2 32.4 mmHg (35.0-45.0); ABG PARTIAL PRESSURE O2 62.4 mmHg (75.0-100.0); ABG TOTAL CO2 24.6 MEQ/L (22.0-29.0)
[2019-12-23] VITALS (8 sets, daily range): BP systolic 125–159; BP diastolic 71–93
[2019-12-23] MEDS: NS 1,000 ML IV SCH ×3 (01:12→10:07)
[2019-12-23 05:17] LABS: HEMATOCRIT 32.9 % (36.0-47.0); HEMOGLOBIN 11.1 g/dl (12.0-15.5); MEAN CORPUSCULAR HEMOGLOBIN 29.4 pg (27.0-33.0); MEAN CORPUSCULAR HGB CONC 33.7 g/dl (32.0-36.5); MEAN CORPUSCULAR VOLUME 87.3 fl (80.0-96.0); PLATELET COUNT, AUTOMATED 393 10^3/uL (150-450); RED BLOOD COUNT 3.77 10^6/uL (4.00-5.40); WHITE BLOOD COUNT 13.2 10^3/uL (4.0-10.0)
[2019-12-23 06:02] LABS: BLOOD UREA NITROGEN 22 MG/DL (7-18); CALCIUM LEVEL 8.3 MG/DL (8.5-10.1); CARBON DIOXIDE LEVEL 28 MEQ/L (21-32); CHLORIDE LEVEL 111 MEQ/L (98-107); CPK CREATINE PHOSPHOKINASE 2343 U/L (26-192); CREATININE FOR GFR 0.51 MG/DL (0.55-1.30); GLOMERULAR FILTRATION RATE > 60.0 (>58); GLUCOSE, FASTING 118 MG/DL (70-100); POTASSIUM SERUM 3.4 MEQ/L (3.5-5.1); SODIUM LEVEL 144 MEQ/L (136-145)
[2019-12-23] MEDS: HEPARIN SOD (PORCINE) 5000UNITS/ML 1ML VIAL/SYRINGE SC SCH (06:06)
[2019-12-23] MEDS ORDERED: POTASSIUM CHLORIDE 10 MEQ SR TABLET PO SCH (09:00)
--- NOTE | 2019-12-23 10:24 | MHCRPDOC ---
[facility] Consultation Consultation DATE OF CONSULTATION: 12/23/19 Subjective HPI: Amy presents today for a consult as she was hospitalized for reported methadone overdose. She has been on methadone for 3-4 years and denies any alcohol use though she has been an addict for 18 years. She reports that she was going about her day when she felt faint and needed to come to the hospital. She has been denying any suicidal thinking or behavior over her several day medical admission. Denies any new medications, but urine tox shows she has been using meth, does report that she had relapsed on it a few days prior. Reports otherwise doing well since last discharge from [facility] MEDICATIONS: She is not taking Gabapentin or Lyrica at this time. Currently taking Lamictal, Wellbutrin, and Celexa. FAMILY HISTORY: Regarding family history, her father had recurrent nervous breakdowns and had anger issues. SOCIAL HISTORY - LIVING SITUATION: Amy lives at home with her and son. Objective Appearance: Appears to be stated age. Well nourished. Well groomed. Behavior: Pleasant. Engaged. Cooperative with good eye contact. Affect: Full range. Appropriate to context. Mood: Appropriately reactive. Generally good. Euthymic. Speech: Normal volume. Spontaneous and Fluid. Normal rate. Motor: No gross motor abnormalities. Cognition: Alert, Attentive, and Oriented to person, place, time. Memory: No formal testing. No gross abnormalities of short or detention memory noted during interview. Thought Form: Linear and goal directed. Thought Content: No thoughts of self harm. No evidence of delusions. No evidence of suicidal ideation. No evidence of aggressive or homicidal ideation. Perception: No perceptual abnormalities noted. Judgement: Intact as evidenced by decision making in the recent past. Insight: Good insight into symptoms and treatment options. Assessment F11.20 Opioid dependence, uncomplicated Plan Patient does not does appear to have an accidental overdose. Her recent relapse likely included some sedatives that have created a overdose especially with methadone. She does not have control of her methadone and is unlikely to have done this as suicide as her mental status has returned to normal from my previous examination of her. The patient at the time of discharge did not meet criteria for involuntary admission/extension due to having a normal mental status exam, fair insight into the situation, They are engaged in the discharge process, as well as being friendly and amenable in behavioral control and havent been engaging in any observed concerning behavior or ideation recently. They decline voluntary extension/admission at this time and must be discharged in good alvin, as Im unable to make a case for holding the patient against their will. They may have historical risk factors of admissions and other interactions with psychiatry however, those are not modifiable from a clinical perspective. The patient will need to be discharged in good alvin. Vital Signs Vital Signs Date Time Temp Pulse Resp B/P (MAP) Pulse Ox O2 Delivery O2 Flow Rate FiO2 12/23/19 07:49 98.6 92 20 136/71 (92) 97 Room Air 12/22/19 14:41 1.0 12/21/19 16:30 50 Laboratory Data 24H Labs Laboratory Tests 2 12/22/19 15:40: Blood Gas Bicarbonate Standard 25.0, Arterial Blood pH 7.480H, Arterial Blood Partial Pressure CO2 32.4L, Arterial Blood Partial Pressure O2 62.4L, Arterial Blood Total CO2 24.6, Arterial Blood HCO3 23.6, Arterial Blood Base Excess 0.6, Arterial Blood Oxygen Saturation 94.8L 12/23/19 05:06: Nucleated Red Blood Cells % (auto) 0.0, Anion Gap 5L, Glomerular Filtration Rate > 60.0, Calcium Level 8.3L, Total Creatine Kinase 2343H Home Medications Current Medications Current Medications Medications (Trade) Dose Ordered Sig/Bernice Route PRN Reason Start Time Stop Time Status Last Admin Dose Admin Heparin Sodium (Porcine) (Heparin) 5,000 units Q8H SC 12/21/19 22:00 12/23/19 06:06 Home Med (Med Rec Complete!) ASDIRECTED XX 12/21/19 17:15 12/21/19 17:17 DC Naloxone HCl (Narcan) 0.4 mg STAT STAT IV 12/21/19 14:00 12/21/19 14:01 DC 12/21/19 14:29 Naloxone HCl (Narcan) 0.4 mg STAT STAT IV 12/21/19 16:21 12/21/19 16:22 DC 12/21/19 16:24 Naloxone HCl (Narcan) 0.4 mg STAT STAT IV 12/22/19 10:57 12/22/19 11:00 DC 12/22/19 11:05 Naloxone HCl 4 mg/ Dextrose 500 ml @ 50 mls/hr Q10H IV 12/22/19 13:00 12/22/19 21:52 DC 12/22/19 13:04 Potassium Chloride (Micro-K Extencaps) 40 meq BID PO 12/23/19 09:00 12/24/19 21:01 12/23/19 10:06 Sodium Chloride 1,000 ml @ 250 mls/hr Q4H IV 12/21/19 17:00 12/23/19 10:07 Scheduled Bupropion Hcl (Bupropion Xl) 150 Mg Tab.er.24h, 150 MG PO DAILY, (Reported) Citalopram Hydrobromide (Citalopram HBr) 20 Mg Tablet, 20 MG PO DAILY, (Reported) Gabapentin (Gabapentin) 600 Mg Tablet, 600 MG PO TID, (Reported) Lamotrigine (Lamotrigine) 100 Mg Tablet, 100 MG PO BID, (Reported) Lisinopril/Hydrochlorothiazide (Lisinopril-Hctz 10-12.5 mg Tab) 1 Each Tablet, 1 TAB PO DAILY, (Reported) Metformin HCl (Metformin HCl) 500 Mg Tablet, 500 MG PO QAM, (Reported) Metformin HCl (Metformin HCl) 500 Mg Tablet, 1,000 MG PO QHS, (Reported) Methadone HCl (Methadone HCl) 10 Mg/1 Ml Oral.conc, 190 MG PO DAILY, (Reported) Miscellaneous Medications [Comments] , (Reported) MED REC MADE WITH EXTERNAL MED HISTORY Allergies Coded Allergies: ketorolac (Verified Allergy, Severe, throat closesd, 07/20/19) metoclopramide (Verified Allergy, Intermediate, 07/20/19) bacitracin (Verified Allergy, Unknown, 07/20/19) neomycin (Verified Allergy, Unknown, 07/20/19) polymyxin B (Verified Allergy, Unknown, 07/20/19) morphine (Verified Adverse Reaction, Intermediate, hr elevated, 07/20/19) quetiapine (Verified Adverse Reaction, Intermediate, heart races, 07/20/19) CORNELL MORTENSEN DO Dec 23, 2019 10:24
== END 2019-12-24 12:00 | disposition home or self-care (01) | DRG 917 ==
LOC: M ED 10:29 → EDBD 10:29 → M ED INP 16:56 → ENRESERV 12-22 00:11 → M ICU 12-22 01:20
PROVIDERS: ADMIT Internal Medicine; ATTEND Internal Medicine
DX: T40.3X1A Poisoning by methadone, accidental (unintentional), initial encounter (principal); G92 Toxic encephalopathy; M62.82 Rhabdomyolysis; E87.2 Acidosis; Z68.41 Body mass index [BMI] 40.0-44.9, adult; F11.20 Opioid dependence, uncomplicated; R73.03 Prediabetes; I10 Essential (primary) hypertension; E66.01 Morbid (severe) obesity due to excess calories; Z79.84 Long term (current) use of oral hypoglycemic drugs; Z79.899 Other long term (current) drug therapy; Z88.1 Allergy status to other antibiotic agents; Z88.5 Allergy status to narcotic agent; Z88.8 Allergy status to other drugs, medicaments and biological substances